=== PATIENT | female | born 1955 | race Caucasian/White ===

== ENCOUNTER 2023-07-11 17:47 | Emergency (ER) | payer MEDICARE, SELFPAY ==
[2023-07-11] VITALS (47 sets, daily range): BP systolic 114–203; BP diastolic 62–109; PULSE 66–163; RESP 12–39; TEMP 36.6; O2SAT 89–99; BMI 21.2
--- NOTE | 2023-07-11 18:00 | DI.RAD.S_ITS ---
PROCEDURE: XR CHEST 1V INDICATIONS: possible partial heart attack TECHNIQUE: One view of the chest was acquired. COMPARISON: None. FINDINGS: Surgical changes and devices: None. Lungs and pleura: Lungs are clear. No pleural effusions or pneumothorax. Hyperaeration and flattening of the hemidiaphragms. Mediastinum: Mediastinal contours appear normal. Heart size is normal. Bones and chest wall: No suspicious bony lesions. Overlying soft tissues appear unremarkable. IMPRESSION: No acute cardiopulmonary abnormalities or focal airspace disease. Dictated by: Jono Baez M.D. on 07/11/2023 at 19:10 Approved by: Jono Baez M.D. on 07/11/2023 at 19:11
[2023-07-11 18:12] LABS: Add Manual Diff / Slide Review NO; Basophils Absolute Auto 100 /uL (0-100); Basophils Percent Auto 0.8 % (0-2); Eosinophils Absolute Auto 100 /uL (0-450); Eosinophils Percent Auto 1.4 % (2-4); Hematocrit 46.6 % (36-46); Hemoglobin 15.6 g/dL (12.0-16.0); Lymphocytes Absolute Auto 1900 /uL (1100-4500); Lymphocytes Percent Auto 22.2 % (25-40); Mean Corpuscular HGB Conc 33.5 % (30-36); Mean Corpuscular Hemoglobin 31.1 PG (26-34); Mean Corpuscular Volume 92.9 fL (80-100); Monocytes Absolute Auto 900 /uL (0-900); Monocytes Percent Auto 10.2 % (3-14); Neutrophils Absolute Auto 5500 /uL (1500-7000); Neutrophils Percent Auto 65.4 % (50-75); Platelet Count 194 X10^3/uL (150-400); Red Blood Cell Count 5.01 X10^6/uL (4.0-5.2); Red Cell Distribution Width 12.9 % (11.6-14.8); White Blood Cell Count 8.4 X10^3/uL (4.5-11.0)
--- NOTE | 2023-07-11 18:16 | ED_ITS ---
HPI - Arrhythmia/Palpitations General Chief Complaint: Arrhythmia/Palpitations Stated Complaint: thinks is having a heart attack Time Seen by Provider: 07/11/23 17:53 Source: patient and family Mode of arrival: Wheelchair Limitations: no limitations History of Present Illness HPI narrative: Patient is a 67-year-old female who is here for evaluation of palpitations and concern about having heart attack. She states that less than 6 hours ago had an onset of feel like her heart was beating fast and skipping beats. No shortness of breath. Has had some nausea but no vomiting. No abdominal pain. No lower extremity swelling. She has never been diagnosed with atrial fibrillation or any other abnormal heart rhythm although in the past she has had brief episodes of fast irregular heart rhythm that have all resolved on their own. She states she was concerned that she was potentially been poisoned at home. 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 Since that time both her and her have experienced headaches. Earlier today she also did a coffee enema because of the ?poison ?exposures that she has had at home. She also states that her potassium has been low in the past which has caused her to feel very similar to this. Related Data Previous Rx's Medication Instructions Recorded cyclobenzaprine 10 mg tablet 10 mg PO TID PRN muscle spasm #12 07/12/23 tabs hydrocodone 5 mg-acetaminophen 325 1 tab PO Q8H PRN pain #10 tabs 07/12/23 mg tablet ondansetron 4 mg disintegrating 4 mg PO Q6H PRN nausea and 07/12/23 tablet vomiting #10 tabs Allergies Allergy/AdvReac Type Severity Reaction Status Date / Time No Known Drug Allergies Allergy Verified 07/11/23 18:05 Review of Systems Review of Systems ROS Unobtainable: All systems reviewed & are unremarkable except as noted in HPI and below Patient History Social History Smoking Status: Never smoker Smoking Status: Never smoker Substance Use Type: does not use Exam Initial Vital Signs Initial Vital Signs: Vital Signs Temperature 97.9 F 07/11/23 17:50 Pulse Rate 143 H 07/11/23 17:50 Respiratory Rate 20 07/11/23 17:50 Blood Pressure 196/91 H 07/11/23 17:50 Pulse Oximetry 99 07/11/23 17:50 Oxygen Delivery Method Room Air 07/11/23 17:50 Const General: cooperative, comfortable and No ill appearing HENMT Head: normal to inspection and normocephalic Resp Effort & Inspection: normal respiratory effort Auscultation: clear to auscultation bilaterally Cardio Rate: tachycardic Rhythm: regular rhythm GI Inspection: normal to inspection and non-distended Skin General: no rashes or lesions noted Neuro General: patient alert, patient awake, patient oriented x3 and moves all extremities Extrem General: capillary refill normal Procedures Cardioversion Consent Signed: Yes Indication: Atrial fibrillation Stability: Stable Number of attempts (shocks): 2 Joules used: 200 Cardiac rhythm post-cardioversion: Sinus rhythm Procedural Sedation Consent signed: Yes Time out performed: Yes Indication: cardioversion Preparation: cafeteria monitor applied, pulse oximeter, capnometry used, supplemental O2 applied, suction/airway equipment at bedside and IV secured Fentanyl: IV Fentanyl dose (mcg): 12 IV Propofol dose (mg): 50 Intraservice time/total sedation time (min): 15 ED Sedation Level: Minimal Patient Tolerated Procedure: Well Complications: none Course Orders Ordered: ED Orders 07/11/23 21:04 EKG-12 Lead Stat 07/12/23 00:32 XR lumbar spine 2-3V Stat Discontinued Medications Hydrocodone Bitart/Acetaminophen (Hydrocodone/Acet 5/325 Prepack) 1 bottle MISC DIRECTED ONE Stop: 07/12/23 01:59 Last Admin: 07/12/23 02:10 Dose: 1 bottle Documented By: CRUZITO Cyclobenzaprine HCl (Cyclobenzaprine 10 Mg Tablet) 10 mg PO NOW ONE Stop: 07/11/23 22:11 Last Admin: 07/11/23 22:15 Dose: 10 mg Documented By: CRUZITO Cyclobenzaprine HCl (Cyclobenzaprine 10 Mg Prepack) 1 bottle MISC DIRECTED ONE Stop: 07/12/23 01:59 Last Admin: 07/12/23 02:10 Dose: 1 bottle Documented By: CRUZITO Diltiazem HCl (Diltiazem 5 Mg/Ml Sdv) 10 mg IV NOW ONE Stop: 07/11/23 18:17 Last Admin: 07/11/23 18:20 Dose: 10 mg Documented By: JEFERSON Fentanyl (Fentanyl 100 Mcg/2 Ml Inj) 12.5 mcg IV NOW ONE Stop: 07/11/23 20:11 Last Admin: 07/11/23 20:58 Dose: 12.5 mcg Documented By: CRUZITO Hydromorphone HCl (Hydromorphone 1 Mg Inj) 1 mg IV NOW ONE Stop: 07/11/23 22:48 Last Admin: 07/11/23 22:54 Dose: 1 mg Documented By: CRUZITO Sodium Chloride (Normal Saline 0.9%) 1,000 mls @ 1,000 mls/hr IV BOLUS ONE Stop: 07/11/23 19:15 Last Infusion: 07/11/23 20:05 Dose: Infused Documented By: Admin: 07/11/23 18:20 Dose: 1,000 mls/hr Documented By: JEFERSON Sodium Chloride (Normal Saline 0.9%) 1,000 mls @ 125 mls/hr IV CONT RIA Last Infusion: 07/12/23 02:10 Dose: Infused Documented By: Infusion: 07/11/23 22:49 Dose: 0 mls/hr Documented By: Admin: 07/11/23 20:51 Dose: 125 mls/hr Documented By: CRUZITO Ketorolac Tromethamine (Ketorolac 30 Mg/Ml Vial) 30 mg IV NOW ONE Stop: 07/11/23 22:48 Last Admin: 07/11/23 22:54 Dose: 30 mg Documented By: CRUZITO Metoclopramide HCl (Metoclopramide 10 Mg/2 Ml Inj) 10 mg IV NOW ONE Stop: 07/11/23 23:28 Last Admin: 07/11/23 23:48 Dose: 10 mg Documented By: CRUZITO Morphine Sulfate (Morphine 4 Mg/Ml Inj) 4 mg IV NOW ONE Stop: 07/11/23 21:34 Last Admin: 07/11/23 21:38 Dose: 4 mg Documented By: CRUZITO Ondansetron HCl (Ondansetron 4 Mg/2 Ml Inj) 4 mg IV NOW ONE Stop: 07/11/23 18:41 Last Admin: 07/11/23 18:46 Dose: 4 mg Documented By: ALBERTO Ondansetron HCl (Ondansetron 4 Mg/2 Ml Inj) 4 mg IV NOW ONE Stop: 07/11/23 20:19 Last Admin: 07/11/23 20:30 Dose: 4 mg Documented By: CRUZITO Ondansetron HCl (Ondansetron 4 Mg Odt Prepack) 1 bottle MISC DIRECTED ONE Stop: 07/12/23 01:59 Last Admin: 07/12/23 02:09 Dose: 1 bottle Documented By: CRUZITO Potassium Chloride (Potassium Chloride 20 Meq Tab) 40 meq PO NOW ONE Stop: 07/11/23 18:32 Last Admin: 07/11/23 18:39 Dose: 40 meq Documented By: ALBERTO Propofol (Propofol 200 Mg/20 Ml Vial) 100 mg IV NOW ONE Stop: 07/11/23 20:11 Last Admin: 07/11/23 20:59 Dose: 50 mg Documented By: CRUZITO Propofol (Propofol 200 Mg/20 Ml Vial) 20 mg IV NOW ONE Stop: 07/11/23 21:02 Last Admin: 07/11/23 21:01 Dose: 20 mg Documented By: CRUZITO Vital Signs Vital signs: Vital Signs - 8 hr 07/11/23 21:20 07/11/23 21:20 07/11/23 21:25 Pulse Rate 72 71 Respiratory Rate 24 32 H Blood Pressure 137/74 Pulse Oximetry 99 99 Oxygen Delivery Method Room Air 07/11/23 21:25 07/11/23 21:30 07/11/23 21:31 Pulse Rate 71 Respiratory Rate 39 H Blood Pressure 135/66 133/92 H Pulse Oximetry 99 Oxygen Delivery Method Room Air 07/11/23 21:31 07/11/23 21:35 07/11/23 21:35 Pulse Rate 70 73 Respiratory Rate 39 H 31 H Blood Pressure 144/83 H Pulse Oximetry 99 99 Oxygen Delivery Method Room Air Room Air 07/11/23 21:40 07/11/23 21:40 07/11/23 21:45 Pulse Rate 69 72 Respiratory Rate 25 H 26 H Blood Pressure 126/67 Pulse Oximetry 98 97 Oxygen Delivery Method Room Air Room Air 07/11/23 21:50 07/11/23 21:55 07/11/23 22:00 Pulse Rate 74 72 69 Respiratory Rate 24 25 H 18 Blood Pressure Pulse Oximetry 98 97 97 Oxygen Delivery Method Room Air 07/11/23 22:01 07/11/23 22:01 07/11/23 22:05 Pulse Rate 68 144 H Respiratory Rate 20 22 Blood Pressure 114/66 Pulse Oximetry 96 Oxygen Delivery Method 07/11/23 22:20 07/11/23 22:40 07/11/23 23:00 Pulse Rate 66 67 71 Respiratory Rate 24 18 20 Blood Pressure Pulse Oximetry Oxygen Delivery Method 07/11/23 23:20 07/11/23 23:40 07/11/23 23:51 Pulse Rate 69 71 Respiratory Rate 18 12 Blood Pressure 124/68 Pulse Oximetry Oxygen Delivery Method 07/11/23 23:51 07/12/23 00:00 07/12/23 00:20 Pulse Rate 74 72 71 Respiratory Rate 22 19 14 Blood Pressure Pulse Oximetry 94 93 93 Oxygen Delivery Method Room Air Room Air 07/12/23 00:51 07/12/23 01:00 07/12/23 01:20 Pulse Rate 74 72 68 Respiratory Rate 12 15 Blood Pressure Pulse Oximetry 93 93 93 Oxygen Delivery Method Room Air Room Air Room Air 07/12/23 01:24 07/12/23 01:24 07/12/23 01:30 Pulse Rate 66 71 Respiratory Rate 17 22 Blood Pressure 123/59 L Pulse Oximetry 95 93 Oxygen Delivery Method Room Air Room Air 07/12/23 01:30 07/12/23 01:40 07/12/23 02:00 Pulse Rate 69 98 H Respiratory Rate 18 23 Blood Pressure 129/62 Pulse Oximetry 97 97 Oxygen Delivery Method Room Air 07/12/23 02:00 Pulse Rate Respiratory Rate Blood Pressure 143/88 H Pulse Oximetry Oxygen Delivery Method MDM - Arrhythmia/Palpitations Lab Data Attestation: I reviewed the patient's lab results. 07/11/23 18:00 07/11/23 18:00 Labs: Lab Results 07/11/23 07/11/23 Range/Units 17:55 18:00 WBC 8.4 (4.5-11.0) X10^3/uL RBC 5.01 (4.0-5.2) X10^6/uL Hgb 15.6 (12.0-16.0) g/dL Hct 46.6 H (36-46) % MCV 92.9 (80-100) fL MCH 31.1 (26-34) PG MCHC 33.5 (30-36) % RDW 12.9 (11.6-14.8) % Plt Count 194 (150-400) X10^3/uL Neut % (Auto) 65.4 (50-75) % Lymph % (Auto) 22.2 L (25-40) % [place] % (Auto) 10.2 (3-14) % Eos % (Auto) 1.4 L (2-4) % Baso % (Auto) 0.8 (0-2) % Neut # (Auto) 5500 (3811-9839) /uL Lymph # (Auto) 1900 (7312-8812) /uL [place] # (Auto) 900 (0-900) /uL Eos # (Auto) 100 (0-450) /uL Baso # (Auto) 100 (0-100) /uL Sodium 145 (137-145) mmol/L Potassium 2.4 L* (3.4-5.1) mmol/L Chloride 102 (98-107) mmol/L Carbon Dioxide 35 H (22-32) mmol/L BUN 20 H (7-17) mg/dL Creatinine 0.98 (0.52-1.04) mg/dL Estimated GFR > 60 (>60) mL/min BUN/Creatinine Ratio 20.4 (6-22) Glucose 110 (80-110) mg/dL Calcium 10.0 (8.4-10.2) mg/dL Magnesium 2.1 (1.6-2.3) mg/dL Total Bilirubin 1.4 H (0.2-1.3) mg/dL AST 42 H (14-36) IU/L ALT 32 (<35) IU/L Alkaline Phosphatase 95 (38-126) U/L Total Protein 9.0 H (6.3-8.2) g/dL Albumin 4.9 (3.5-5.0) g/dL Globulin 4.1 (1.7-4.1) g/dL Albumin/Globulin Ratio 1.2 (1.0-2.8) Lipase 94 (23-300) U/L Urine RBC 0-1/hpf (0-5/HPF) Urine WBC None seen (0-5/HPF) Ur Squamous Epith Cells None seen (0-5/HPF) Urine Bacteria None seen (None) Ur Culture Indicated? Cult not indicated Vol Urine Centrifuged 10ml (spun) Point of Care Testing Test Results Not applicable Urine Dip Bedside Urine Glucose Negative Bedside Urine Bilirubin - Negative Bedside Urine Ketone - Negative Urine Specific [place] 1.010 Bedside Urine Occult Blood +/- Bedside Urine pH 7.0 Bedside Urine Protein +/- 15 Bedside Urine Urobilinogen - Negative Bedside Urine Nitrite - Negative Bedside Urine Leukocytes - Negative Esterase Imaging Data Chest x-ray: Radiologist's Impresson: PROCEDURE: XR CHEST 1V INDICATIONS: possible partial heart attack TECHNIQUE: One view of the chest was acquired. COMPARISON: None. FINDINGS: Surgical changes and devices: None. Lungs and pleura: Lungs are clear. No pleural effusions or pneumothorax. Hyperaeration and flattening of the hemidiaphragms. Mediastinum: Mediastinal contours appear normal. Heart size is normal. Bones and chest wall: No suspicious bony lesions. Overlying soft tissues appear unremarkable. IMPRESSION: No acute cardiopulmonary abnormalities or focal airspace disease. lumbar spine: Radiologist's Impresson: PROCEDURE: XR LUMBAR SPINE 2-3V INDICATIONS: lower back pain TECHNIQUE: 3 views of the lumbar spine were acquired. COMPARISON: None. FINDINGS: Bones: Rudimentary right rib at T12. Moderate compression fracture with superior endplate sclerosis at L1. Transitional vertebral body at L5 with sacralization of the left transverse process. Maintenance of normal alignment. Diffuse demineralization. No suspicious bony lesions. Soft tissues: Overlying bowel gas pattern is normal. No suspicious soft tissue calcifications. IMPRESSION: Moderate chronic appearing L1 compression fracture. ECG Data Attestation: I personally reviewed and interpreted this ECG as follows: Interpretation: Atrial fibrillation Ventricular rate [address] depressions Post cardioversion Sinus rhythm Ventricular rate is 68 Occasional PAC Normal QRS No ST T wave changes MDM Narrative Medical decision making narrative: Patient is well-appearing. Her palpitations/tachycardia has started within the past 6 hours. She most likely has had issues with this in the past but they have all resolved on their own. She was hypokalemic. This was replaced by oral potassium. Discussed the risks and benefits of cardioversion versus rate control. Patient agreed to cardioversion. She was sedated. Initially attempted at 200 joules. We were successful for short period of time but then she went back in AFib. We attempted 1 further time of cardioversion at another 200 joules. This time patient maintained sinus rhythm. No episodes of hypoxia. After recovering from the sedation patient had a fairly sudden onset of lower back discomfort. I did not feel that the patient had a systemic response to the cardioversion that would necessarily have caused any fractures. She was given multiple doses of medications and we were eventually able to get her symptoms somewhat under control. X-ray show an old L1 fracture. I do not think that this is new. We discussed the use of anticoagulation. She has a CHADS-VASc score of 2. Patient states she would like to hold on anticoagulation. She states that if she eats a grapefruit she bruises and she was ?certain? that this things her blood and she would rather just eat the grape fruit. We discussed the concern for risk of stroke and she expressed understanding of this but would like to hold on anticoagulation for now. Since she is now back into sinus rhythm we will hold on antiarrhythmics for now. Advised that she contact your primary doctor as she was going to need further workup to include echocardiogram. Her symptoms completely resolved after the cardioversion. She was given return precautions. She expressed understanding and agreement. Discharge Plan Departure Patient Disposition: Home Clinical Impression: Atrial fibrillation, Low back pain Instructions: DI for Cardioversion, DI for Low Back Pain, DI for Atrial Fibrillation Activity Restrictions/Additional Instructions: I do recommend that you contact your primary doctor for further evaluation of the atrial fibrillation. Your most likely going to need further testing to include an echocardiogram and potentially referral to see Cardiology. Take the medications as needed for your low back pain. I recommend that you try to stay as active as possible. Return to the emergency department for new symptoms. Prescriptions: New hydrocodone-acetaminophen 5-325 mg tablet 1 tab PO Q8H PRN (Reason: pain) Qty: 10 0RF ondansetron 4 mg tablet,disintegrating 4 mg PO Q6H PRN (Reason: nausea and vomiting) Qty: 10 0RF cyclobenzaprine 10 mg tablet 10 mg PO TID PRN (Reason: muscle spasm) Qty: 12 0RF Referrals: Daquan Torres MD [Primary Care Provider] - Stand Alone Forms: Patient Portal/API
[2023-07-11] MEDS: dilTIAZem 5 MG/ML SDV 10 MG IV (18:20)
[2023-07-11] MEDS: SODIUM CHLORIDE 0.9% 1,000 ML 1000 ML IV (18:20)
[2023-07-11 18:27] LABS: Magnesium 2.1 mg/dL (1.6-2.3)
[2023-07-11 18:28] LABS: Alanine Aminotransferase 32 IU/L (<35); Albumin 4.9 g/dL (3.5-5.0); Albumin Globulin Ratio 1.2 (1.0-2.8); Alkaline Phosphatase 95 U/L (38-126); Aspartate Aminotransferase 42 IU/L (14-36); BUN Creatinine Ratio 20.4 (6-22); Bilirubin Total 1.4 mg/dL (0.2-1.3); Blood Urea Nitrogen 20 mg/dL (7-17); Carbon Dioxide 35 mmol/L (22-32); Chloride 102 mmol/L (98-107); Estimated Glomerular Filt Rate > 60 mL/min (>60); Globulin 4.1 g/dL (1.7-4.1); Glucose 110 mg/dL (80-110); HEMOLYSIS 40 (0-50); Lipase 94 U/L (23-300); Sodium 145 mmol/L (137-145)
[2023-07-11 18:29] LABS: Potassium 2.4 mmol/L (3.4-5.1)
[2023-07-11] MEDS: POTASSIUM CHLORIDE 20 MEQ TAB 40 MEQ PO (18:39)
[2023-07-11] MEDS: ONDANSETRON 4 MG/2 ML INJ IV ×2 (18:46→20:30)
--- NOTE | 2023-07-11 18:53 | PC.NURSE ---
Pt does not complain of any pain.
[2023-07-11 19:07] LABS: Bacteria Urine None Seen; Culture Indicated Urine Cult Not Indicated; RBC Urine 0-1/HPF (0-5/HPF); Squamous Epithelial Cell Urine None Seen (0-5/HPF); Urine Volume 10mL (spun); WBC Urine None Seen (0-5/HPF)
[2023-07-11] MEDS: SODIUM CHLORIDE 0.9% 1,000 ML 125 ML IV (20:51)
[2023-07-11] MEDS: fentaNYL 100 MCG/2 ML INJ 12.5 MCG IV (20:58)
[2023-07-11] MEDS: propofoL 200 MG/20 ML VIAL 100 MG IV (20:59)
[2023-07-11] MEDS: propofoL 200 MG/20 ML VIAL 20 MG IV (21:01)
[2023-07-11] MEDS: MORPHINE 4 MG/ML INJ IV (21:38)
[2023-07-11] MEDS: CYCLOBENZAPRINE 10 MG TABLET PO (22:15)
--- NOTE | 2023-07-11 22:49 | PC.NURSE ---
Patient asking to pause the IV fluids, states she does not want them right now. Dr. Huang aware.
[2023-07-11] MEDS: HYDROMORPHONE 1 MG INJ IV (22:54)
[2023-07-11] MEDS: KETOROLAC 30 MG/ML VIAL IV (22:54)
--- NOTE | 2023-07-11 23:25 | PC.NURSE ---
Patient currently vomiting in room, states she feels ill. Dr. Huang notified immediately, awaiting orders.
[2023-07-11] MEDS: METOCLOPRAMIDE 10 MG/2 ML INJ IV (23:48)
[2023-07-12] VITALS (9 sets, daily range): BP systolic 123–143; BP diastolic 59–88; PULSE 66–98; RESP 12–23; O2SAT 93–97
--- NOTE | 2023-07-12 00:32 | DI.RAD.S_ITS ---
PROCEDURE: XR LUMBAR SPINE 2-3V INDICATIONS: lower back pain TECHNIQUE: 3 views of the lumbar spine were acquired. COMPARISON: None. FINDINGS: Bones: Rudimentary right rib at T12. Moderate compression fracture with superior endplate sclerosis at L1. Transitional vertebral body at L5 with sacralization of the left transverse process. Maintenance of normal alignment. Diffuse demineralization. No suspicious bony lesions. Soft tissues: Overlying bowel gas pattern is normal. No suspicious soft tissue calcifications. IMPRESSION: Moderate chronic appearing L1 compression fracture. Dictated by: Maddy Oro M.D. on 07/12/2023 at 1:32 Approved by: Maddy Oro M.D. on 07/12/2023 at 1:35
[2023-07-12] MEDS: ONDANSETRON 4 MG ODT PREPACK 1 BOTTLE MISC (02:09)
[2023-07-12] MEDS: CYCLOBENZAPRINE 10 MG PREPACK 1 BOTTLE MISC (02:10)
[2023-07-12] MEDS: HYDROCODONE/ACET 5/325 PREPACK 1 BOTTLE MISC (02:10)
== END 2023-07-12 02:17 | disposition home or self-care (01) ==
PROVIDERS: Emergency Provider Emergency Medicine; PCP Family Medicine
DX: I48.91 Unspecified atrial fibrillation (principal); M54.50 Low back pain, unspecified
CPT/HCPCS: 71045; 72100; 80053; 81003; 81015; 83690; 83735; 85025; 92960; 93005; 96361; 96374; 96375; 96376; 99285; J1170; J1885; J2270; J2405; J2704; J2765; J3010

== ENCOUNTER 2023-07-13 13:31 | Emergency (ER) | payer MEDICARE, SELFPAY ==
[2023-07-13] VITALS (10 sets, daily range): BP systolic 135–170; BP diastolic 67–79; PULSE 56–80; RESP 9–24; TEMP 36.6; O2SAT 93–97; BMI 21.2
--- NOTE | 2023-07-13 13:52 | ED_ITS ---
HPI - General Adult General Chief complaint: Back Pain/Injury Stated complaint: IN ER 2 DAYS NOT GETTING BETTER Time Seen by Provider: 07/13/23 13:43 History of Present Illness HPI narrative: 67-year-old woman presents complaining of severe back/flank pain that started after being cardioverted on July 10. She notes that she recently started using isopropyl alcohol for cleaning and then began developing constitutional symptoms that she realized were toxic reaction to the isopropyl alcohol. She is since cleans the house, done detoxification including using some caffeine enemas. With all of these issues she had an episode of heart palpitation was seen in the emergency department on July 10 and found to be in atrial fibrillation. She was cardioverted and successfully returned to sinus rhythm. When she awoke from sedation and cardioversion she was complaining of significant low back pain. Lumbar spine films at that time showed an old L1 compression fracture but no new findings. She was discharged home. She comes back complaining that she continues to have severe abdominal/right flank/lumbar pain. She is not having any fevers or chills. Feels like she is improving after the isopropyl alcohol exposures at home but continues to complain that she is having difficulty walking because of the pain Related Data Previous Rx's Medication Instructions Recorded cyclobenzaprine 10 mg tablet 10 mg PO TID PRN muscle spasm #12 07/12/23 tabs meloxicam 15 mg tablet 15 mg PO DAILY #30 tabs 07/13/23 Allergies Allergy/AdvReac Type Severity Reaction Status Date / Time No Known Drug Allergies Allergy Verified 07/13/23 14:04 Review of Systems Review of Systems Narrative: Pertinent positive and negative findings as per HPI Patient History Social History Smoking Status: Never smoker Smoking Status: Never smoker Substance Use Type: does not use Exam Initial Vital Signs Initial Vital Signs: Vital Signs Temperature 98 F 07/13/23 13:45 Pulse Rate 80 07/13/23 13:45 Respiratory Rate 17 07/13/23 13:45 Blood Pressure 147/67 H 07/13/23 13:45 Pulse Oximetry 97 07/13/23 13:45 Oxygen Delivery Method Room Air 07/13/23 13:45 General: Healthy appearing, in no acute distress. Able to give a complete and coherent history. Well-nourished well-developed HEENT: Moist mucous membranes, normal sclera with reactive pupils, Respiratory: Lungs are clear to auscultation, no wheezing no rales no rhonchi. Full and symmetrical air movement Cardiac: Regular rate and rhythm no murmurs no bruits Abdomen: Soft, mild right lower quadrant and right flank tenderness. She does not have paraspinous spasm. No tenderness along the lower thoracic or lumbar spine. She does not have any pain with manipulation of her pelvic ring. She is most comfortable with her right leg drawn up slightly. Skin: Warm and dry, no rashes Neurologic: Grossly neurologically intact with no obvious asymmetries or abnormalities Extremities: No trauma, well perfused Psych: Cooperative, appropriate insight and affect Course Orders Ordered: ED Orders 07/13/23 14:08 CT abdomen pelvis w con Stat 07/13/23 14:13 Complete Blood Count AUTO DIFF Stat Comprehensive Metabolic Panel Stat Urine Microscopic Stat Hydromorphone HCl (Hydromorphone 0.5 Mg Inj) 0.5 mg IV Q15MIN PRN PRN Reason: Pain, Last Admin: 07/13/23 14:19 Dose: 0.5 mg Documented By: CLARENCE Discontinued Medications Sodium Chloride (Normal Saline 0.9%) 1,000 mls @ 1,000 mls/hr IV BOLUS ONE Stop: 07/13/23 15:06 Last Infusion: 07/13/23 15:32 Dose: Infused Documented By: Admin: 07/13/23 14:20 Dose: 1,000 mls/hr Documented By: CLARENCE Ketorolac Tromethamine (Ketorolac 30 Mg/Ml Vial) 15 mg IV NOW ONE Stop: 07/13/23 14:08 Last Admin: 07/13/23 14:19 Dose: 15 mg Documented By: CLARENCE Ondansetron HCl (Ondansetron 4 Mg/2 Ml Inj) 4 mg IV NOW ONE Stop: 07/13/23 14:08 Last Admin: 07/13/23 14:19 Dose: 4 mg Documented By: CLARENCE Vital Signs Vital signs: Vital Signs - 8 hr 07/13/23 13:45 07/13/23 14:45 07/13/23 15:00 Temperature 98 F Pulse Rate 80 62 58 L Respiratory Rate 17 9 L 12 Blood Pressure 147/67 H 151/68 H 146/67 H Pulse Oximetry 97 94 95 Oxygen Delivery Method Room Air 03/21/24 15:30 07/13/23 16:00 07/13/23 16:27 Temperature Pulse Rate 66 64 59 L Respiratory Rate 20 22 20 Blood Pressure 164/78 H 162/68 H Pulse Oximetry 97 96 95 Oxygen Delivery Method Room Air 07/13/23 16:30 07/13/23 16:30 07/13/23 17:00 Temperature Pulse Rate 56 L 61 Respiratory Rate 13 24 Blood Pressure 146/67 H Pulse Oximetry 93 96 Oxygen Delivery Method 07/13/23 17:00 Temperature Pulse Rate Respiratory Rate Blood Pressure 161/70 H Pulse Oximetry Oxygen Delivery Method Medical Decision Making Lab Data 07/13/23 14:13 07/13/23 14:13 Labs: Lab Results 07/13/23 Range/Units 14:13 WBC 9.8 (4.5-11.0) X10^3/uL RBC 4.34 (4.0-5.2) X10^6/uL Hgb 13.7 (12.0-16.0) g/dL Hct 40.5 (36-46) % MCV 93.4 (80-100) fL MCH 31.7 (26-34) PG MCHC 33.9 (30-36) % RDW 13.1 (11.6-14.8) % Plt Count 145 L (150-400) X10^3/uL Neut % (Auto) 78.5 H (50-75) % Lymph % (Auto) 11.4 L (25-40) % [facility] % (Auto) 8.1 (3-14) % Eos % (Auto) 1.5 L (2-4) % Baso % (Auto) 0.5 (0-2) % Neut # (Auto) 7700 H (2523-9049) /uL Lymph # (Auto) 1100 (7949-2776) /uL [facility] # (Auto) 800 (0-900) /uL Eos # (Auto) 100 (0-450) /uL Baso # (Auto) 0 (0-100) /uL Sodium 143 (137-145) mmol/L Potassium 2.7 L* (3.4-5.1) mmol/L Chloride 105 (98-107) mmol/L Carbon Dioxide 33 H (22-32) mmol/L BUN 16 (7-17) mg/dL Creatinine 0.95 (0.52-1.04) mg/dL Estimated GFR > 60 (>60) mL/min BUN/Creatinine Ratio 16.8 (6-22) Glucose 125 H (80-110) mg/dL Calcium 8.9 (8.4-10.2) mg/dL Total Bilirubin 1.2 (0.2-1.3) mg/dL AST 38 H (14-36) IU/L ALT 28 (<35) IU/L Alkaline Phosphatase 80 (38-126) U/L Total Protein 7.5 (6.3-8.2) g/dL Albumin 4.2 (3.5-5.0) g/dL Globulin 3.3 (1.7-4.1) g/dL Albumin/Globulin Ratio 1.3 (1.0-2.8) Urine RBC 0-1/hpf (0-5/HPF) Urine WBC 0-1/hpf (0-5/HPF) Ur Squamous Epith Cells 0-1 /hpf (0-5/HPF) Amorphous Sediment 2+ Urine Bacteria Few (2-10) H (None) Ur Culture Indicated? Cult not indicated Vol Urine Centrifuged 10ml (spun) Urine Dip Bedside Urine Glucose Negative Bedside Urine Bilirubin - Negative Bedside Urine Ketone - Negative Urine Specific [place] 1.015 Bedside Urine Occult Blood + Bedside Urine pH 6.5 Bedside Urine Protein - Negative Bedside Urine Urobilinogen - Negative Bedside Urine Nitrite - Negative Bedside Urine Leukocytes - Negative Esterase Point of care testing: Urine Dip Bedside Urine Glucose Negative Bedside Urine Bilirubin - Negative Bedside Urine Ketone - Negative Urine Specific [place] 1.015 Bedside Urine Occult Blood + Bedside Urine pH 6.5 Bedside Urine Protein - Negative Bedside Urine Urobilinogen - Negative Bedside Urine Nitrite - Negative Bedside Urine Leukocytes - Negative Esterase [facility] Narrative Medical decision making narrative: CC: Right flank/lower abdomen/low back pain since July 10 post cardioversion for initial episode of atrial fibrillation Complicating co-morbidities: No current prescription medications Data collected from: patient Medical records reviewed: Note from July 10 with cardioversion and workup done at that time are reviewed Differential considered: Low back strain, appendicitis, kidney stone, gallstone, shingles, hip strain, worsening compression fracture Exam documented above, pertinent findings include: Mild tenderness in the right lower quadrant right flank. No significant musculoskeletal tenderness. She has not tender to palpation over lumbar spine and lower thoracic spine Lab Test results independently reviewed as above. Pertinent findings: CBC is unremarkable Chemistries are notable for low potassium, appropriate renal function Urine is unremarkable Imaging studies independently reviewed: CT scan shows fatty liver with multiple hepatic cysts. Mild biliary and pancreatic duct dilatation, no gallstones or evidence of cholecystitis. Acute/subacute appearing L2 compression fractur Treatments: Patient declines oral potassium as it caused significant GI distress when given to her 2 days ago. She responded well to IV Toradol and the small dose of Dilaudid. Discussion: 67-year-old woman who complains of worsening acute back pain after cardioversion 48 hours ago. It does look like she has worsening of a prior L2 compression fracture which is consistent with the pain and description of pain. She has multiple sensitivities to medications and is not interested in narcotics. Not interested in potassium supplementation beyond dietary sources, very reluctant to consider nonsteroidals. We talked about ice and heat as helpful adjuncts. Also reassured her that frequently fracture pain is the worst 48 hours after the incident which is today. I suspect that she will begin to feel better. Findings reviewed with the patient and her and she is safe for discharge Discharge Plan Departure Patient Disposition: Home Clinical Impression: Acute hypokalemia Closed compression fracture of L2 vertebra Qualifiers: Encounter type: initial encounter Qualified Code(s): S32.020A - Wedge compression fracture of second lumbar vertebra, initial encounter for closed fracture Instructions: DI for Vertebral Fracture Activity Restrictions/Additional Instructions: Thank you for coming in today I am sorry that you are continuing to suffer with this pain. The CT scan that we did today suggests that you have a worsening of a previous L2 compression fracture. Isn't hearing the CT scan done today to the x-ray that was done on the it does look like the compression fracture is slightly worse. That would certainly explain why you are hurting so much as well as the pattern of pain. Going to give you a prescription for meloxicam to take daily to see if this will help reduce some of the pain. You can certainly use ice and heat to help reduce pain. It is okay to continue to move and being up and walking will likely help encourage overall healing We talked about dietary options for both increasing your potassium level and helping with constipation. The prune, walnut and coconut water combination sounds perfect for both of these. I would recommend avoiding caffeine enemas for the time being, I suspect that is part of what caused the significant hypokalemia If you find that you are getting worse or develop any new symptoms, please feel free to return to the emergency department for further evaluation. Prescriptions: New meloxicam 15 mg tablet 15 mg PO DAILY Qty: 30 0RF No Action cyclobenzaprine 10 mg tablet 10 mg PO TID PRN (Reason: muscle spasm) Qty: 12 0RF Referrals: Daquan Torres MD [Primary Care Provider] - Stand Alone Forms: Patient Portal/API
--- NOTE | 2023-07-13 14:08 | DI.CT.S_ITS ---
PROCEDURE: CT ABDOMEN PELVIS W CON INDICATIONS: low back and lower abdominal pain TECHNIQUE: After the administration of intravenous contrast, axial sections acquired from the lung bases to the pubic symphysis. Coronal and sagittal reformats were performed. For radiation dose reduction, the following was used: automated exposure control, adjustment of mA and/or kV according to patient size. COMPARISON: [facility], CR, XR LUMBAR SPINE 2-3V, 07/12/2023, 0:33. FINDINGS: Image quality: Diagnostic. Lower Chest: No significant findings. ABDOMEN: Liver: No solid mass. Diffuse fatty infiltration of the liver. Multiple hepatic cysts. Gallbladder: No radiopaque gallstones or wall thickening. Biliary ducts: Mild biliary dilatation with common bile duct measuring up to 1.1 centimeters. Pancreas: Pancreatic duct is prominent measuring up to 5 millimeters. Spleen: Size is within normal limits. Adrenal Glands: No adrenal nodules. Kidneys and Ureters: No hydronephrosis. No solid mass. No complex renal cystic lesion which requires follow up. Stomach and Bowel: Normal colonic caliber, without significant wall thickening. Moderate amount of stool in the right colon. The appendix is normal. Peritoneum: No abnormal intraperitoneal fluid. No free air. Ventral Wall: No significant ventral hernia. Abdominal Nodes: No retroperitoneal or mesenteric adenopathy by size criteria. Vessels: Aorta and inferior vena cava are normal in size. PELVIS: Pelvic Organs: Unremarkable. Bladder: Mild, slightly irregular anterior urinary bladder wall thickening.. Pelvic Nodes: No enlarged lymph nodes. Miscellaneous: No inguinal hernias are seen. Bones: Transitional anatomy with right hem- lumbarization of the S1 vertebral body. Acute/subacute appearing T2 compression fracture. T2 compression fracture results and approximately 50% loss of normal vertebral body height. Mildly retropulsed bone fragment associated with T2 compression fracture causes mild central canal narrowing. No kyphosis associated with the T2 compression fracture. IMPRESSION: Acute/subacute appearing L2 compression fracture. Mild biliary dilatation. Recommend correlation with laboratory data to exclude biliary obstruction. If there is clinical concern for biliary obstruction consider MRCP for additional evaluation. Mild, slightly irregular anteriorly bladder wall thickening. Neoplastic process is not excluded. Recommend correlation with urinalysis data and on nonemergent urology consultation. Dictated by: Yazmin Chamorro MD, PhD on 07/13/2023 at 15:10 Approved by: Yazmin Chamorro MD, PhD on 07/13/2023 at 15:18
[2023-07-13] MEDS: HYDROMORPHONE 0.5 MG INJ IV (14:19)
[2023-07-13] MEDS: KETOROLAC 30 MG/ML VIAL 15 MG IV (14:19)
[2023-07-13] MEDS: ONDANSETRON 4 MG/2 ML INJ IV (14:19)
[2023-07-13] MEDS: SODIUM CHLORIDE 0.9% 1,000 ML 1000 ML IV (14:20)
[2023-07-13 14:26] LABS: Add Manual Diff / Slide Review NO; Basophils Absolute Auto 0 /uL (0-100); Basophils Percent Auto 0.5 % (0-2); Eosinophils Absolute Auto 100 /uL (0-450); Eosinophils Percent Auto 1.5 % (2-4); Hematocrit 40.5 % (36-46); Hemoglobin 13.7 g/dL (12.0-16.0); Lymphocytes Absolute Auto 1100 /uL (1100-4500); Lymphocytes Percent Auto 11.4 % (25-40); Mean Corpuscular HGB Conc 33.9 % (30-36); Mean Corpuscular Hemoglobin 31.7 PG (26-34); Mean Corpuscular Volume 93.4 fL (80-100); Monocytes Absolute Auto 800 /uL (0-900); Monocytes Percent Auto 8.1 % (3-14); Neutrophils Absolute Auto 7700 /uL (1500-7000); Neutrophils Percent Auto 78.5 % (50-75); Platelet Count 145 X10^3/uL (150-400); Red Blood Cell Count 4.34 X10^6/uL (4.0-5.2); Red Cell Distribution Width 13.1 % (11.6-14.8); White Blood Cell Count 9.8 X10^3/uL (4.5-11.0)
[2023-07-13 14:43] LABS: Bacteria Urine Few (2-10); RBC Urine 0-1/HPF (0-5/HPF); Urine Volume 10mL (spun); WBC Urine 0-1/HPF (0-5/HPF)
[2023-07-13 14:44] LABS: Amorphous Sediment Urine 2+; Culture Indicated Urine Cult Not Indicated; Squamous Epithelial Cell Urine 0-1 /HPF (0-5/HPF)
[2023-07-13 14:47] LABS: Alanine Aminotransferase 28 IU/L (<35); Albumin 4.2 g/dL (3.5-5.0); Albumin Globulin Ratio 1.3 (1.0-2.8); Alkaline Phosphatase 80 U/L (38-126); Aspartate Aminotransferase 38 IU/L (14-36); BUN Creatinine Ratio 16.8 (6-22); Bilirubin Total 1.2 mg/dL (0.2-1.3); Blood Urea Nitrogen 16 mg/dL (7-17); Calcium 8.9 mg/dL (8.4-10.2); Carbon Dioxide 33 mmol/L (22-32); Chloride 105 mmol/L (98-107); Estimated Glomerular Filt Rate > 60 mL/min (>60); Globulin 3.3 g/dL (1.7-4.1); Glucose 125 mg/dL (80-110); Potassium 2.7 mmol/L (3.4-5.1); Sodium 143 mmol/L (137-145); Total Protein 7.5 g/dL (6.3-8.2)
[2023-07-13 14:51] LABS: HEMOLYSIS 16 (0-50)
== END 2023-07-13 17:47 | disposition home or self-care (01) ==
PROVIDERS: Emergency Provider Emergency Medicine; PCP Family Medicine
DX: S32.020A Wedge compression fracture of second lumbar vertebra, initial encounter for closed fracture (principal); E87.6 Hypokalemia
CPT/HCPCS: 36415; 74177; 80053; 81003; 81015; 85025; 96361; 96374; 96375; 99284; J1170; J1885; J2405; Q9967

== ENCOUNTER → 2023-07-27 14:56 | Outpatient (CLI) | payer MEDICARE, SELFPAY ==
--- NOTE | 2023-07-27 | DI.RAD.S_ITS ---
PROCEDURE: XR HIP W PEL IF DONE ODETTE MIN 4V INDICATIONS: LOW BACK PAIN TECHNIQUE: AP pelvis with lateral view(s) of the right and left hip(s). COMPARISON: None. FINDINGS: Bones: No fractures or dislocations. Pelvic ring appears intact. No suspicious bony lesions. Mild osteoarthritic changes in hips and sacroiliac joints. Soft tissues: The visualized bowel gas pattern is normal. No suspicious soft tissue calcifications. IMPRESSION: 1. No acute bony abnormality. 2. Mild osteoarthritis. Dictated by: Luisa Bruno M.D. on 07/27/2023 at 17:51 Approved by: Luisa Bruno M.D. on 07/27/2023 at 17:52
== END ==
PROVIDERS: PCP Family Medicine; Referring Provider Family Medicine; Visit Provider Family Medicine
DX: M16.0 Bilateral primary osteoarthritis of hip (principal); M54.50 Low back pain, unspecified
CPT/HCPCS: 73522

== ENCOUNTER → 2024-12-03 13:38 | Outpatient (CLI) | payer MEDICARE, SELFPAY ==
--- NOTE | 2024-12-03 13:40 | DI.US.S_ITS ---
PROCEDURE: US RENAL COMPLETE INDICATIONS: CHRONIC KIDNEY DISEASE TECHNIQUE: Real-time scanning was performed of the kidneys and bladder, with image documentation. COMPARISON: None. FINDINGS: Kidneys: Kidneys are normal in size. Right kidney measures 10.8 cm long; left kidney measures 9.1 cm long. Right renal cortical thickness is 1.3 cm; left renal cortical thickness is 1.2 cm. Renal cortical echotexture is mildly increased bilaterally. No hydronephrosis or nephrolithiasis. No suspicious solid mass lesions. A 1.3 cm simple cyst in the right upper pole cortex. Bladder: Pre-void bladder volume is 239 mL. Post-void residual is 12 mL. Pre- void images demonstrate no intraluminal masses or stones. On pre-void images, bilateral ureteral jets are noted with color Doppler interrogation. (Of note, ureteral jets may not be detectable in up to 25% of cases due to insufficient differences in specific gravity between ureteral and bladder urine). Miscellaneous: No free pelvic fluid. IMPRESSION: Bilaterally mildly increased renal echogenicity can be seen with medical renal disease. No nephrolithiasis or hydronephrosis. Dictated by: Mason Godoy M.D. on 12/03/2024 at 17:04 Approved by: Mason Godoy M.D. on 12/03/2024 at 17:06
== END ==
LOC: US 13:38
PROVIDERS: PCP Family Medicine; Referring Provider Internal Medicine; Visit Provider Internal Medicine
DX: N18.9 Chronic kidney disease, unspecified (principal); N28.1 Cyst of kidney, acquired
CPT/HCPCS: 76770

== ENCOUNTER → 2025-02-18 14:49 | Outpatient (CLI) | payer MEDICARE, SELFPAY ==
--- NOTE | 2025-02-18 14:50 | DI.US.S_ITS ---
PROCEDURE: US RENAL COMPLETE INDICATIONS: Chronic kidney disease, unspecified TECHNIQUE: Real-time scanning was performed of the kidneys and bladder, with image documentation. COMPARISON: [facility], , RENAL COMPLETE, 12/03/2024, 14:02. FINDINGS: Kidneys: Right kidney measures 9.7 cm long; left kidney measures 8.9 cm long. Right renal cortical thickness is 1.2 cm; left renal cortical thickness is 1.4 cm. Mild increased renal cortical echogenicity bilaterally commonly medical renal disease similar to the prior exam. 1.0 centimeter hypoechoic round lesion right kidney upper pole unchanged. No hydronephrosis or nephrolithiasis. Bladder: Pre-void bladder volume is 257 mL. Post-void residual is 48 mL. Pre- void images demonstrate no intraluminal masses or stones. On pre-void images, bilateral ureteral jets are noted with color Doppler interrogation. Miscellaneous: No free pelvic fluid. IMPRESSION: Increased renal cortical echogenicity bilaterally commonly medical renal disease unchanged. 1.0 cm hypoechoic cystic structure right kidney unchanged. Dictated by: Abdiaziz Sena M.D. on 02/19/2025 at 20:38 Approved by: Abdiaziz Sena M.D. on 02/19/2025 at 22:01
== END ==
LOC: US 14:49
PROVIDERS: PCP Internal Medicine; Referring Provider Internal Medicine; Visit Provider Internal Medicine
DX: N18.9 Chronic kidney disease, unspecified (principal); N28.1 Cyst of kidney, acquired
CPT/HCPCS: 76770